=== PATIENT | male | born 1970 | race Caucasian/White ===

== ENCOUNTER 2019-09-29 07:12 | Emergency (ER) | payer OTHER, SELFPAY ==
--- NOTE | ~2019-09-29 | CT_ITS ---
EXAMINATION: CT brain wo con DATE: 09/29/2019 08:53 INDICATION: Headache. TECHNIQUE: Computed tomography (CT) of the head was performed without intravenous contrast. The mA wa s adjusted according to patient size. Iterative reconstruction technique was employed. The dose-lengt h product was 681.00 mGy-cm. COMPARISON: Head CT 01/20/2019 FINDINGS: The lateral and third ventricles are enlarged without change. There is a right occipital sh unt with tip in right lateral ventricle. There is chronic diffuse dural thickening, which is an expec leandra finding after craniotomy. There is no intracranial hemorrhage, acute infarction, or abnormal intr acranial mass lesion. There is mucosal thickening in the paranasal sinuses. The orbits are normal. Th e mastoid air cells are normal. Partially visualized is retained tubing in the right neck. IMPRESSION: 1. Enlargement of the lateral and third ventricles without change. Ventriculoperitoneal shunt in expe cted position without change. Reviewed, dictated and finalized at location A. DESK ADMINISTRATOR IMPRESSION: 1. Enlargement of the lateral and third ventricles without change. Ventriculope ritoneal shunt in expected position without change.
--- NOTE | ~2019-09-29 | XR_ITS ---
EXAMINATION: XR chest 2V DATE: 09/29/2019 08:52 INDICATION: Right chest pain. Weakness. TECHNIQUE: Frontal and lateral views of the chest were obtained. COMPARISON: Chest radiograph 06/27/2019 FINDINGS: The chest demonstrates clear lungs without pneumonia, pleural effusion, or pneumothorax. Th e heart size is normal. There is ventriculoperitoneal shunt tubing in right chest wall. IMPRESSION: 1. No acute cardiopulmonary disease. Reviewed, dictated and finalized at location A. UCT SAFETY ADMINISTRATOR
[2019-09-29 07:40] VITALS: BP 118/67; PULSE 66; RESP 18; TEMP 36.6; O2SAT 96
[2019-09-29 08:23] LABS: Basophils Absolute Auto 0.07 K/mm3 (0.00-0.10); Basophils Percent Auto 0.6 % (0.0-1.0); Eosinophils Absolute Auto 0.31 K/mm3 (0.02-0.50); Eosinophils Percent Auto 2.6 % (1.0-6.0); Hematocrit 45.9 % (40.0-54.0); Hemoglobin 16.8 g/dL (14.0-18.0); Immature Granulocyte Absolute 0.05 K/mm3 (0.00-0.00); Immature Granulocyte Percent A 0.4 % (0.0-0.0); Lymphocytes Absolute Auto 1.72 K/mm3 (1.10-4.50); Lymphocytes Percent Auto 14.6 % (18.0-42.0); Mean Corpuscular HGB Conc 36.6 g/dL (32.0-36.0); Mean Corpuscular Hemoglobin 30.7 pg (27.0-31.0); Mean Corpuscular Volume 83.8 fL (78.0-102.0); Mean Platelet Volume 10.2 fl (8.7-11.0); Monocytes Absolute Auto 1.02 K/mm3 (0.10-0.90); Monocytes Percent Auto 8.6 % (2.0-11.0); Neutrophils Absolute Auto 8.7 K/mm3 (1.7-7.2); Neutrophils Percent Auto 73.2 % (50.0-70.0); Platelet Count Result 201 K/mm3 (150-420); Red Blood Count 5.48 M/mm3 (4.70-6.10); Red Cell Distribution Width 11.6 % (11.6-14.4); White Blood Count 11.8 K/mm3 (4.8-10.8)
[2019-09-29 08:24] LABS: Add Urine Microscopic? YES; Appearance Urine Clear (Clear); Bilirubin Urine Negative (Negative); Blood Urine Negative (Negative); Color Urine Yellow (Yellow); Glucose Urine UA 3+ (Negative); Ketones Urine Negative (Negative); Leukocyte Esterase Ur Negative LEU/UL (Negative); Nitrate Urine Negative (Negative); Protein Urine Negative (Negative); Urobilinogen Urine 0.2 mg/dL (0.2-1.0)
[2019-09-29 08:28] LABS: Bacteria Urine None seen /hpf; RBC Urine 0-2 /hpf (0-2); WBC Urine 0-3 /hpf (0-3)
[2019-09-29] MEDS: MORPHINE SULFATE 4 MG/ML INJ IV PUSH (08:29)
[2019-09-29] MEDS: ONDANSETRON INJ 4 MG/2 ML VIAL IV PUSH (08:29)
--- NOTE | 2019-09-29 08:34 | PC.NURSE ---
pt to xray with Miriam cook wheelchair.
[2019-09-29 08:40] LABS: Alanine Aminotransferase 21 U/L (16-63); Albumin Level 3.8 g/dL (3.4-5.0); Alkaline Phosphatase 184 U/L (46-116); Anion Gap 14.4 mmol/L (7-16); Aspartate Amino Transferase 11 U/L (15-37); Bilirubin,Total 0.9 mg/dL (0.00-1.00); Blood Urea Nitrogen 13 mg/dL (7-18); Carbon Dioxide 26 mmol/L (21-32); Chloride 96 mmol/L (98-108); Estimated CRCL calculation 90 ml/min; Estimated Glomerular Filt Rate > 60; Potassium 4.4 mmol/L (3.5-5.1); Sodium 132 mmol/L (136-145); Total Protein 7.5 g/dL (6.4-8.2)
[2019-09-29 08:41] LABS: Glucose 519 mg/dL (70-99); Influenza Control Valid (Valid); Osmolality Calculated 297 mOsm/kg (285-295)
--- NOTE | 2019-09-29 08:42 | PC.NURSE ---
call from lab, glucose level 519. erp dr yun notified.
--- NOTE | 2019-09-29 08:57 | PC.NURSE ---
pt return from xray. was able to steadily walk to bathroom without assistance. states for the 1st time in 1 week i dont have a headache.
--- NOTE | 2019-09-29 09:31 | ED.HA ---
HPI - Headache General Chief Complaint: Headache Stated Complaint: feeling well, headache Source: patient Limitations: no limitations History of Present Illness HPI Narrative: 48-year-old male with a history of ventricular shunt that was placed when he was 15 years old some has not seen a neurosurgeon the last 10 years and has not had a primary care physician. Presents with headache generalized with nausea no blurry vision no fever or chills no chest pain no shortness of breath no abdominal pain no diarrhea constipation. Patient has tried Tylenol with minimal relief, there is some no confusion no slurred speech no lethargy no ataxia. Patient did not volunteer that he is a diabetic and has been on insulin in the past, and has been verbally abusive since he presented to our ER, and of calling all doctors that he has recently visited [facility] and not knowing what they are doing. Had a workup with a CT scan approximately 2 to 3 weeks ago with a normal CT. MD elicited complaint: headache Onset description: gradually Location: generalized Severity: moderate Quality & Timing: aching and similar to previous headaches Exacerbating factors: none Context: occurred at rest Associated symptoms: nausea Related Data Home Medications Medication Instructions Recorded Confirmed No Home Medications 09/29/19 09/29/19 Allergies Allergy/AdvReac Type Severity Reaction Status Date / Time No Known Allergies Allergy Unverified 04/20/18 20:16 Review of Systems Review of Systems: All systems reviewed & are unremarkable except as noted in HPI and below PMFSH Past Medical History Medical History Diabetes mellitus Hydrocephalus Social History Social History Smoking status: Current every day smoker Course Course Emergency Course: Reassessment headache has improved with currently no nausea or vomiting, reviewed CT scan and laboratory findings including a chest x-ray which were on normal findings, the CT scan was read as no ventricular shunt abnormalities. The patient was told that his blood sugars were 519, the patient said that is normal for him and we going to do about it, and he has been on insulin in the past and he stopped taking his medication because he felt that the the doctors were inadequate did not know how to treat his insulin and diabetes. After consulting with him and advising that he needed a dose of insulin and can go home with p.o. medications totally follows up with his primary care physician he became very combative, verbally abusive and some using profanity. And continue to be rate doctors that the take care of him. Of the patient was advised to take his some dose of insulin and can be discharged with p.o. medication, but he kept reiterating that what we do afterwards. And it was explained to him that he can continue to take p.o. medications to [facility] follows up with a primary care physician. Continued to be verbally abusive using profanity and seeing the doctors some in [place] do not know what they are doing. Patient signing out AMA. Gave patient all the options to bring down his blood sugars he refused advised that he needs to follow with the neurosurgeon. And continue using profanity even while walking out the door and signing out AMA Vital Signs Vital signs: Vital Signs Temperature 36.6 C 09/29/19 07:40 Pulse Rate 66 09/29/19 07:40 Respiratory Rate 18 09/29/19 07:40 Blood Pressure 118/67 09/29/19 07:40 Pulse Oximetry 96 09/29/19 07:40 Temperature 36.6 C 09/29/19 07:40 Pulse Rate 66 09/29/19 07:40 Respiratory Rate 18 09/29/19 07:40 Blood Pressure 118/67 09/29/19 07:40 Pulse Oximetry 96 09/29/19 07:40 MDM - Headache Lab Data Result diagrams: 09/29/19 08:19 09/29/19 08:19 Labs: Lab Results 09/29/19 09/29/19 09/29/19 Range/Uni
--- NOTE | 2019-09-29 09:37 | PC.NURSE ---
pt verbally abusive to RN and doctor. pt not forthcoming with all past medical history. after discussing diabetes and elevated blood sugar with dr yun, pt became irrate and stated i have insulin at home and all you F------doctors are idiots. see refusal of medical treatment form. pt signed ama form. discharge plan not completed due to pt signing out ama. extensive explaination and instructions per dr yun continued
== END 2019-09-29 09:40 | disposition left against medical advice (07) ==
PROVIDERS: Emergency Provider Emergency Medicine
DX: E11.69 Type 2 diabetes mellitus with other specified complication (principal); G91.9 Hydrocephalus, unspecified; R51 Headache
CPT/HCPCS: 36415; 70450; 71046; 80053; 81001; 85025; 87040; 87804; 96374; 96375; 99283; 99284; J2270; J2405

== ENCOUNTER 2020-07-07 15:37 | Emergency (ER) | payer SELFPAY ==
--- NOTE | ~2020-07-07 | XR_ITS ---
EXAMINATION: XR chest 1V portable DATE: 07/07/2020 16:27 INDICATION: Chest tightness. TECHNIQUE: A single frontal view of the chest was obtained. COMPARISON: Chest 2 views 09/29/2019 FINDINGS: The chest demonstrates clear lungs without pneumonia, pleural effusion, or pneumothorax. Th e heart size is normal. Tubing overlies the right chest. There is an old healed fracture of right cla vicle. IMPRESSION: 1. No acute cardiopulmonary disease. Reviewed, dictated and finalized at location A. FACTURING QUALITY ENGINEER
[2020-07-07 16:00] VITALS: BP 126/75; PULSE 63; RESP 13; TEMP 36.6; O2SAT 99
[2020-07-07 16:12] VITALS: PULSE 65
[2020-07-07 16:58] LABS: Basophils Absolute Auto 0.05 K/mm3 (0.00-0.10); Basophils Percent Auto 0.6 % (0.0-1.0); Eosinophils Absolute Auto 0.42 K/mm3 (0.02-0.50); Eosinophils Percent Auto 5.4 % (1.0-6.0); Hematocrit 48.7 % (40.0-54.0); Hemoglobin 17.6 g/dL (14.0-18.0); Immature Granulocyte Absolute 0.05 K/mm3 (0.00-0.00); Immature Granulocyte Percent A 0.6 % (0.0-0.0); Lymphocytes Absolute Auto 2.73 K/mm3 (1.10-4.50); Mean Corpuscular HGB Conc 36.1 g/dL (32.0-36.0); Mean Corpuscular Hemoglobin 30.4 pg (27.0-31.0); Mean Corpuscular Volume 84.1 fL (78.0-102.0); Mean Platelet Volume 10.1 fl (8.7-11.0); Monocytes Absolute Auto 0.62 K/mm3 (0.10-0.90); Neutrophils Absolute Auto 3.9 K/mm3 (1.7-7.2); Neutrophils Percent Auto 50.4 % (50.0-70.0); Platelet Count Result 182 K/mm3 (150-420); Red Blood Count 5.79 M/mm3 (4.70-6.10); Red Cell Distribution Width 11.5 % (11.6-14.4); White Blood Count 7.8 K/mm3 (4.8-10.8)
[2020-07-07] MEDS: KETOROLAC (*BKC) 60 MG/2 ML VIAL IM (17:02)
[2020-07-07 17:16] LABS: Alanine Aminotransferase 22 U/L (16-63); Alkaline Phosphatase 163 U/L (46-116); Anion Gap 8 mmol/L (8-16); Aspartate Amino Transferase 13 U/L (15-37); Bilirubin,Total 1.1 mg/dL (0.00-1.00); Blood Urea Nitrogen 10 mg/dL (7-18); Calcium 9.2 mg/dL (8.5-10.1); Carbon Dioxide 26 mmol/L (21-32); Chloride 100 mmol/L (98-108); Estimated CRCL calculation 109 ml/min; Estimated Glomerular Filt Rate > 60; Glucose 289 mg/dL (70-99); Osmolality Calculated 288 mOsm/kg (285-295); Potassium 3.8 mmol/L (3.5-5.1); Sodium 134 mmol/L (136-145); Total Protein 8.6 g/dL (6.4-8.2)
[2020-07-07 17:24] LABS: Troponin I < 0.02 ng/mL (0.00-0.056)
[2020-07-07 17:26] LABS: Influenza Control Valid (Valid)
--- NOTE | 2020-07-07 17:33 | ED.CHESTPAIN ---
HPI - Chest Pain General Chief Complaint: Chest Pain Stated Complaint: headache/tightness in chest Source: patient Mode of arrival: ambulatory History of Present Illness HPI narrative: this is 41-year-old gentleman with history of normal pressure hydrocephalus with a a shunt, presents with chest congestion and tightness with some productive cough of yellow sputum with some mild shortness of breath, no fever or chills no nausea vomiting no neurological deficits has mild headache with some no weakness arms or legs no blurry vision. Patient has a history of diabetes and currently there is no nausea vomiting no abdominal pain no diarrhea constipation. MD complaint: chest discomfort ( described more as congestion) Onset (ago): day(s) Timing of current episode: constant Onset: during rest and other Risk Factors Coronary artery disease risk factors: diabetes Related Data Allergies Allergy/AdvReac Type Severity Reaction Status Date / Time No Known Allergies Allergy Unverified 04/20/18 20:16 Review of Systems Review of Systems: All systems reviewed & are unremarkable except as noted in HPI and below PMFSH Past Medical History Medical History (Updated 07/07/20 @ 17:37 by All Choi MD) Diabetes mellitus Hydrocephalus Social History Social History Smoking status: Current every day smoker Exam Const: General: no acute distress Orientation/consciousness: patient oriented x3 HENMT: Head: normal to inspection Eyes: Conjunctivae: conjunctivae normal Pupils: Equal, round and reactive pupils present EOM: EOMs intact bilaterally Direct Ophthalmoscopy: no photophobia Neck: Neck: normal visual inspection, no lymphadenopathy and no meningeal signs Chest: Chest palpation & inspection: normal inspection of the chest Resp: Effort & Inspection: normal respiratory effort Auscultation: diminished lung sounds Cardio: Rate: regular rate Rhythm: regular rhythm : Testes: Testes normal Urinary Catheter: Urinary Catheter: patent and draining Back/Spine/Pelvis: Back: no CVA tenderness Skin: General skin exam: normal color Rashes: no rashes Course Course Emergency Course: Patient received IM Toradol and headache has improved continues to have a and chest congestion with a mild productive cough, reviewed chest x-ray ending area Vital Signs Vital signs: Vital Signs Temperature 36.6 C 07/07/20 16:00 Pulse Rate 63 07/07/20 16:00 Respiratory Rate 13 07/07/20 16:00 Blood Pressure 126/75 07/07/20 16:00 Pulse Oximetry 99 07/07/20 16:00 Temperature 36.6 C 07/07/20 16:00 Pulse Rate 65 07/07/20 16:12 Respiratory Rate 13 07/07/20 16:00 Blood Pressure 126/75 07/07/20 16:00 Pulse Oximetry 99 07/07/20 16:00 MDM - Chest Pain Lab Data Result diagrams: 07/07/20 16:50 07/07/20 16:50 Labs: Lab Results 07/07/20 07/07/20 07/07/20 Range/Units 16:10 16:50 16:50 WBC 7.8 (4.8-10.8) K/mm3 RBC 5.79 (4.70-6.10) M/mm3 Hgb 17.6 (14.0-18.0) g/dL Hct 48.7 (40.0-54.0) % MCV 84.1 (78.0-102.0) fL MCH 30.4 (27.0-31.0) pg MCHC 36.1 H (32.0-36.0) g/dL RDW 11.5 L (11.6-14.4) % Plt Count 182 (150-420) K/mm3 MPV 10.1 (8.7-11.0) fl Immature Gran % (Auto) 0.6 H (0.0-0.0) % Neut % (Auto) 50.4 (50.0-70.0) % Lymph % (Auto) 35.0 (18.0-42.0) % [place] % (Auto) 8.0 (2.0-11.0) % Eos % (Auto) 5.4 (1.0-6.0) % Baso % (Auto) 0.6 (0.0-1.0) % Lymph # (Auto) 2.73 (1.10-4.50) K/mm3 [place] # (Auto) 0.62 (0.10-0.90) K/mm3 Eos # (Auto) 0.42 (0.02-0.50) K/mm3 Baso # (Auto) 0.05 (0.00-0.10) K/mm3 Abs Immat Gran (auto) 0.05 H (0.00-0.00) K/mm3 Absolute Neuts (auto) 3.9 (1.7-7.2) K/mm3 Absolute Nucleated RBC 0.00 (0.00-0.00) K/mm3 Nucleated RBC % 0.0 (0-0.0) % Sodium 134 L (136-145) mmol/L Potassium 3.8 (3.5-5.1)
[2020-07-07] MEDS: AZITHROMYCIN 250 MG TABLET 500 MG PO (18:00)
[2020-07-07 18:07] VITALS: BP 115/73; PULSE 53; RESP 15; O2SAT 98
[2020-07-09 00:53] LABS: SARS-CoV-2 RNA PCR Positive
== END 2020-07-07 18:13 | disposition home or self-care (01) ==
PROVIDERS: Emergency Provider Emergency Medicine
DX: U07.1 COVID-19 (principal); J06.9 Acute upper respiratory infection, unspecified; R05 Cough; R09.89 Other specified symptoms and signs involving the circulatory and respiratory systems; F17.200 Nicotine dependence, unspecified, uncomplicated
CPT/HCPCS: 36415; 71045; 80053; 84484; 85025; 87040; 87635; 87804; 96372; 99283; 99284; A9270; C9803; J1885; U0003

== ENCOUNTER 2021-01-07 14:26 | Emergency (ER) | payer SELFPAY ==
--- NOTE | ~2021-01-07 | CT_ITS ---
EXAMINATION: CT brain wo con EXAM DATE: 01/07/2021 15:14 INDICATION: History of hydrocephalus, shunt placement confusion, general [place]/weakness x 3 weeks, abn g ait, dizzy . TECHNIQUE: Spiral CT of the head was performed without contrast. Axial, coronal and sagittal images were reviewed. The dose-length product (DLP) for this examination was 681.00 mGy-cm. The exposure w as tailored according to patient size, and iterative reconstruction (ASIR) was used as additional dos e reduction technique. Comparison is made to prior examination from 09/29/2019, 01/20/2019. FINDINGS: There is a right-sided ventricular shunt entering through the parietal region, tip in the b nisha of the right lateral ventricle. The lateral and 3rd ventricles are dilated out of proportion comp ared to the sulci, however appearance is unchanged compared to 2019. There is no acute intraparenchymal hemorrhage. No evidence of intraparenchymal brain mass lesion. N o evidence of acute infarction. There is no mass effect or midline shift. There are no extra-axial collections. There are no acute calvarial fractures. The orbits are unremarkable. Soft tissue is un remarkable. The visualized sinuses and mastoid air cells are well aerated. IMPRESSION: 1. Mildly dilated ventricles unchanged. 2. No acute findings. Reviewed, dictated and finalized at location A.
[2021-01-07 14:29] VITALS: BP 125/82; PULSE 63; RESP 20; TEMP 36.2; O2SAT 95
--- NOTE | 2021-01-07 14:31 | ED.WEAKNESS ---
HPI - Weakness General Chief complaint: Headache Stated complaint: weak disoriented Time Seen by Provider: 01/07/21 14:29 Source: patient and RN notes reviewed Mode of arrival: ambulatory Limitations: no limitations History of Present Illness HPI Narrative: patient has a history of a ventricular shunt from hydrocephalus since he was 15 years old. He has been having headaches off and on for 3 weeks. He said he vomited twice yesterday. He is just feeling more dizzy and disoriented. Patient is supposed to be taking medications for high BP and diabetes but has not taking any because he lost his insurance. Complaint: generalized weakness and lack of energy Onset (ago): week(s) (3) Duration: intermittent Location: generalized Migration: none Severity: moderate Relieving factors: none Exacerbating factors: none Associated symptoms: headaches ( intermittent) and nausea/vomiting ( twice yesterday) Related Data Allergies Allergy/AdvReac Type Severity Reaction Status Date / Time No Known Allergies Allergy Unverified 04/20/18 20:16 Review of Systems Review of Systems: All systems reviewed & are unremarkable except as noted in HPI and below Constitutional: Constitutional: Denies chills, Denies fever(s) and Reports weakness Eyes: Eyes: Denies photophobia Cardiovascular: Cardiovascular: Denies chest pain Respiratory: Respiratory: Denies cough and Denies dyspnea Gastrointestinal: Gastrointestinal: Denies constipation and Denies diarrhea Genitourinary: Genitourinary: Denies dysuria and Denies urinary frequency Neurologic: Reports confusion and Reports dizziness PMFSH Past Medical History Medical History (Updated 01/07/21 @ 16:00 by Gallo Johnson MD) Anxiety and depression Diabetes mellitus Hydrocephalus Surgical History Surgical History (Updated 01/07/21 @ 14:40 by Gallo Johnson MD) H/O brain surgery H/O knee surgery Social History Social History (Updated 01/07/21 @ 14:56 by Gallo Johnson MD) Smoking packs per day: 1.5 Smoking cigarettes per day: 30.0 Smoking status: Current every day smoker Tobacco type: cigarettes Alcohol intake: current Drinks per week: 12 Substance use: never Exam Const: General: healthy appearing and no acute distress Nutritional Appearance: well nourished Orientation/consciousness: patient oriented x3 HENMT: Head: normal to inspection Ears: external ears normal Mouth: Yes moist mucous membranes Eyes: Conjunctivae: conjunctivae normal Pupils: Equal, round and reactive pupils present EOM: EOMs intact bilaterally Neck: Neck: normal visual inspection Resp: Effort & Inspection: normal respiratory effort Auscultation: clear to auscultation bilaterally Cardio: Rate: regular rate Rhythm: regular rhythm GI: GI Palp: Yes Soft to palpation and No Tenderness to palpation present (GI) Auscultation: normal bowel sounds Back/Spine/Pelvis: Cervical Spine: cervical ROM normal Thoracic/Lumbar Spine: thoraco-lumbar ROM normal Skin: General skin exam: normal color Rashes: no rashes Neuro: General: patient oriented x3, moves all extremities, no meningeal signs and no focal motor deficits Speech: normal speech Extrem: General: normal to inspection and no clubbing, cyanosis or edema Psych: Appearance: grossly normal Mental Status: mental status grossly normal Attitude: cooperative Thought content: Yes Normal thought content present Course Course Emergency Course: I reviewed the CT scan and labs with the patient. His CT showed no change since 2019. Reassured patient there is no evidence of shunt malfunction. Reasons for his generalized weakness as due to his uncontrolled diabetes, alcohol use and tobacco use. Vital Signs Vital signs: Vital Signs Temperature 36.2 C L 01/07/21 14:29 Pulse Rate 63 01/07/21 14:29 Respiratory Rate 20 01/07/21 14:29 Blood Pressure 125/82 01/07/21 14:29 Pulse Oximetry 95 01/07/21 14:29 Temperature 3
[2021-01-07 14:42] LABS: Glucose Point of Care 421 (65-105)
[2021-01-07 14:51] LABS: Basophils Absolute Auto 0.09 K/mm3 (0.00-0.10); Basophils Percent Auto 1.2 % (0.0-1.0); Eosinophils Percent Auto 6.4 % (1.0-6.0); Hematocrit 46.6 % (40.0-54.0); Immature Granulocyte Absolute 0.04 K/mm3 (0.00-0.00); Immature Granulocyte Percent A 0.5 % (0.0-0.0); Lymphocytes Absolute Auto 2.77 K/mm3 (1.10-4.50); Lymphocytes Percent Auto 35.6 % (18.0-42.0); Mean Corpuscular HGB Conc 36.5 g/dL (32.0-36.0); Mean Corpuscular Hemoglobin 30.7 pg (27.0-31.0); Mean Corpuscular Volume 84.3 fL (78.0-102.0); Mean Platelet Volume 10.2 fl (8.7-11.0); Monocytes Absolute Auto 0.64 K/mm3 (0.10-0.90); Monocytes Percent Auto 8.2 % (2.0-11.0); Neutrophils Absolute Auto 3.7 K/mm3 (1.7-7.2); Neutrophils Percent Auto 48.1 % (50.0-70.0); Platelet Count Result 219 K/mm3 (150-420); Red Blood Count 5.53 M/mm3 (4.70-6.10); Red Cell Distribution Width 11.5 % (11.6-14.4); White Blood Count 7.8 K/mm3 (4.8-10.8)
[2021-01-07 14:59] LABS: Hemoglobin A1C 8.9 % (<5.7)
[2021-01-07] MEDS: INSULIN HUMAN REGULAR (*BKC) 100 UNITS/ML 20 UNITS SUB-Q (15:02)
--- NOTE | 2021-01-07 15:04 | PC.NURSE ---
1504 pt to xray with [address] x[address] staff for head ct. pt taken per wheelchair.
--- NOTE | 2021-01-07 15:12 | PC.NURSE ---
1510 pt return to room per wheelchair. declines need to urinate.
[2021-01-07 15:14] LABS: Alanine Aminotransferase 28 U/L (16-63); Albumin Level 3.8 g/dL (3.4-5.0); Alkaline Phosphatase 179 U/L (46-116); Anion Gap 7 mmol/L (8-16); Aspartate Amino Transferase 15 U/L (15-37); Blood Urea Nitrogen 10 mg/dL (7-18); Calcium 8.9 mg/dL (8.5-10.1); Carbon Dioxide 29 mmol/L (21-32); Chloride 98 mmol/L (98-108); Estimated CRCL calculation 93 ml/min; Estimated Glomerular Filt Rate > 60; Osmolality Calculated 296 mOsm/kg (285-295); Potassium 4.1 mmol/L (3.5-5.1); Sodium 134 mmol/L (136-145); Thyroid Stimulating Hormone 1.61 uIU/mL (0.36-3.74); Total Protein 7.5 g/dL (6.4-8.2)
[2021-01-07 15:15] VITALS: BP 122/80; PULSE 61; RESP 20; O2SAT 98
[2021-01-07 15:17] LABS: Ethanol < 3 mg/dL (0-6)
[2021-01-07 15:18] LABS: Glucose 439 mg/dL (70-99)
[2021-01-07 15:31] LABS: Glucose Point of Care 311 (65-105)
[2021-01-07 15:44] LABS: Add Urine Microscopic? YES; Appearance Urine Clear (Clear); Bilirubin Urine Negative (Negative); Blood Urine Negative (Negative); Color Urine Yellow (Yellow); Glucose Urine UA 3+ (Negative); Ketones Urine Negative (Negative); Leukocyte Esterase Ur Negative LEU/UL (Negative); Nitrate Urine Negative (Negative); Protein Urine Negative (Negative); Urobilinogen Urine 0.2 mg/dL (0.2-1.0)
[2021-01-07 15:50] LABS: Amphetamine Screen Urine Negative (Negative); Barbiturate Screen Urine Negative (Negative); Benzodiazepines Screen Urine Negative (Negative); Cannabinoid Screen Urine Negative (Negative); Cocaine Screen Urine Negative (Negative); Methadone Screen Urine Negative (Negative); Opiate Screen Urine Negative (Negative); Phencyclidine Screen Urine Negative (Negative); RBC Urine 0-2 /hpf (0-2); WBC Urine 0-3 /hpf (0-3)
[2021-01-07 15:51] LABS: Bacteria Urine Trace /hpf
[2021-01-07 15:55] VITALS: BP 141/79; PULSE 62; RESP 20; TEMP 36.9; O2SAT 97
== END 2021-01-07 16:04 | disposition home or self-care (01) ==
PROVIDERS: Emergency Provider Emergency Medicine; PCP Family Medicine
DX: E11.65 Type 2 diabetes mellitus with hyperglycemia (principal)
CPT/HCPCS: 36415; 70450; 80053; 80307; 81001; 82948; 83036; 84443; 85025; 99283; 99284; J1815

== ENCOUNTER 2021-02-11 05:06 | Emergency (ER) | payer SELFPAY ==
--- NOTE | ~2021-02-11 | CT_ITS ---
EXAMINATION: CT brain wo con DATE: 02/11/2021 06:56 INDICATION: Hydrocephalus. TECHNIQUE: Computed tomography (CT) of the head was performed without intravenous contrast. The dose- length product was 681.00 mGy-cm. Automated exposure control and iterative reconstruction technique were employed. COMPARISON: CT dated 01/07/2010 FINDINGS: There is a right-sided ventricular shunt, tip in the right lateral ventricle. Mild ventricu lomegaly unchanged. No acute intracranial hemorrhage, infarction, mass or mass effect. There is intra cranial atherosclerosis. There is mild mucosal thickening of the ethmoid sinuses. Postsurgical change s at the junction of the right maxillary sinus and nasal bone. Mastoids are pneumatized. No air-fluid levels. There is chronic diffuse dural thickening dural calcifications along the left hemisphere. IMPRESSION: 1. Stable enlargement of the lateral and third ventricles with ventriculoperitoneal shunt in expected position. Reviewed, dictated and finalized at location A. IMPRESSION: 1. Stable enlargement of the lateral and third ventricles with ventriculoperito leeann shunt in expected position.
--- NOTE | ~2021-02-11 | XR_ITS ---
EXAMINATION: XR chest 2V 02/11/2021 05:52 INDICATION: Cough with shortness of breath PROCEDURE: 2 view chest COMPARISON: 07/07/2020 FINDINGS: The lungs are clear. The cardiomediastinal silhouette is within normal limits. There are no pleural effusions. There is no pneumothorax suspected. There is a shunt overlying the right ches t. There is old healed right clavicular fracture. IMPRESSION: 1: NO ACUTE CARDIOPULMONARY DISEASE. Reviewed, dictated and finalized at location A.
[2021-02-11 05:06] VITALS: BP 133/88; PULSE 64; RESP 20; TEMP 36.5; O2SAT 100
--- NOTE | 2021-02-11 05:16 | ED.SOB ---
HPI - SOB/Dyspnea General Chief Complaint: Upper Respiratory Infection Stated Complaint: SHORTNESS OF BREATHE Time Seen by Provider: 02/11/21 05:10 Source: patient Mode of arrival: ambulatory Limitations: no limitations History of Present Illness HPI Narrative: Patient comes in with cough, recurent, ongoing, dry, for the last two weeks, associated with chronic headache. He is concerned he has bronchitis. He is concerned his shunt in his head is not working. He denies fever and chills. Nothing has made the cough any better. MD elicited complaint: shortness of breath (mild chronic shortness of breath ) and cough Pertinent past history: diabetes and other (ventricular shunt) Context: recent illness Timing: constant Severity: severe Exacerbating factors: exertion Relieving factors: nothing Known history of: diabetes Associated symptoms: denies other symptoms and chest congestion Related Data Home oxygen amount: none Allergies Allergy/AdvReac Type Severity Reaction Status Date / Time No Known Allergies Allergy Unverified 04/20/18 20:16 Review of Systems Constitutional: Constitutional: Denies chills, Reports fatigue and Denies fever(s) (chronic headache) Eyes: Eyes: Reports no additional eye complaints ENT: Reports system reviewed and no additional complaints, except as documented Cardiovascular: Cardiovascular: Reports no additional cardiovascular complaints Respiratory: Respiratory: Reports cough and Reports dyspnea (mild chronic shortness of breath) Gastrointestinal: Gastrointestinal: Reports no additional gastrointestinal complaints Genitourinary: Genitourinary: Reports no additional male genitourinary complaints Musculoskeletal: Musculoskeletal: Reports no additional musculoskeletal complaints Integumentary/Breasts: Skin/Breast: Reports system reviewed and no additional complaints, except as docu Neurologic: Comments: chronic headache Psychiatric: Psychiatric: Reports no additional psychiatric complaints Endocrine: Endocrine: Reports no additional endocrine complaints Hematologic/Lymphatic: Hematologic/Lymphatic: Reports no additional hematologic/lymphatic complaints Allergic/Immunologic: Allergic/Immunologic: Reports no additional allergic/immunologic complaints [facility] Past Medical History Medical History Anxiety and depression Diabetes mellitus Hydrocephalus Surgical History Surgical History H/O brain surgery H/O knee surgery Family History Family History (Updated 02/11/21 @ 05:29 by Gallo Logan MD) Other Family history non-contributory Social History Social History Smoking packs per day: 1.5 Smoking cigarettes per day: 30.0 Smoking status: Current every day smoker Tobacco type: cigarettes Alcohol intake: current Drinks per week: 12 Substance use: never Exam Const: General: no acute distress and alert Orientation/consciousness: patient oriented x3 HENMT: Head: normal to inspection Ears: external ears normal and TM's normal bilaterally General nose exam: Normal external nose present Mouth: Yes Normal oral and palatal mucosa present Throat: posterior oropharynx normal Eyes: Conjunctivae: conjunctivae normal Neck: Neck: normal visual inspection Chest: Chest palpation & inspection: normal inspection of the chest Resp: Effort & Inspection: normal respiratory effort Auscultation: clear to auscultation bilaterally Cardio: Rate: regular rate Rhythm: regular rhythm GI: GI Palp: Yes Soft to palpation (nontender) Skin: General skin exam: normal color Neuro: General: patient oriented x3 and moves all extremities Extrem: General: normal to inspection Psych: Mental Status: mental status grossly normal Thought content: Yes Normal thought content present Course Course Emergency Course: CXR was reviewed. he
[2021-02-11] MEDS: BENZONATATE 100 MG CAPSULE 200 MG PO (05:33)
--- NOTE | 2021-02-11 07:02 | PC.NURSE ---
REPORT TO jason VERDE
[2021-02-11 07:23] VITALS: BP 123/73; PULSE 56; RESP 20; TEMP 37.1; O2SAT 99
== END 2021-02-11 07:28 | disposition home or self-care (01) ==
PROVIDERS: Emergency Provider Emergency Medicine; PCP Family Medicine
DX: J40 Bronchitis, not specified as acute or chronic (principal)
CPT/HCPCS: 70450; 71046; 99283; 99284; A9270

== ENCOUNTER 2021-07-08 14:06 | Emergency (ER) | payer SELFPAY ==
--- NOTE | ~2021-07-08 | XR_ITS ---
EXAMINATION: XR chest 2V 07/08/2021 14:35 INDICATION: Chest pain. History of stroke. PROCEDURE: 2 view chest COMPARISON: Comparison to multiple prior studies sequentially, with oldest reviewed study dated 06/01. FINDINGS: The lungs are clear. There is a catheter overlying the right chest. The cardiomediastinal s ilhouette is within normal limits. There are no pleural effusions. There is no pneumothorax suspect ed. IMPRESSION: 1: NO ACUTE CARDIOPULMONARY DISEASE. Reviewed, dictated and finalized at location A. 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
[2021-07-08 14:15] VITALS: BP 112/70; PULSE 86; RESP 16; TEMP 36.7; O2SAT 98
--- NOTE | 2021-07-08 14:19 | ECG_ITS ---
Measurements Intervals [place] Rate: 80 P: 63 MN: 143 QRS: 39 QRSD: 82 T: 61 QT: 357 QTc: 413 Interpretive Statements SINUS RHYTHM POSSIBLE LEFT ATRIAL ENLARGEMENT INCOMPLETE RIGHT BUNDLE BRANCH BLOCK BORDERLINE T WAVE ABNORMALITY- ANTERIOR LEADS BASELINE ARTIFACT- I, III, AVL, AVF, V3 BORDERLINE ECG Electronically Signed On 07-08-2021 16:21:17 PIANO ACCOMPANIST by Sabino Alvarez D.O.
[2021-07-08 14:37] LABS: Basophils Absolute Auto 0.1 K/mm3 (0.0-0.1); Basophils Percent Auto 1.1 % (0.2-1.2); Eosinophils Absolute Auto 0.3 K/mm3 (0-0.3); Eosinophils Percent Auto 3.7 % (0-4.4); Hematocrit 43.9 % (42.0-52.0); Hemoglobin 16.1 g/dL (14.0-18.0); Immature Granulocyte Absolute 0.02 K/mm3 (0.00-0.031); Immature Granulocyte Percent A 0.3 % (0-0.5); Lymphocytes Absolute Auto 2.53 K/mm3 (0.9-3.2); Lymphocytes Percent Auto 32.3 % (18.3-44.2); Mean Corpuscular HGB Conc 36.7 g/dl (32-36); Mean Corpuscular Hemoglobin 30.5 pg (26-34); Mean Corpuscular Volume 83.1 fl (80-100); Mean Platelet Volume 9.9 fl (7.4-10.4); Monocytes Absolute Auto 0.6 K/mm3 (0.1-0.6); Monocytes Percent Auto 7.3 % (2.6-8.5); Neutrophils Absolute Auto 4.3 K/mm3 (1.3-6.7); Neutrophils Percent Auto 55.3 % (45.5-73.1); Platelet Count Result 242 k/mm3 (150-375); Red Blood Count 5.28 M/mm3 (4.6-6.20); Red Cell Distribution Width 11.6 % (11.5-14.5); White Blood Count 7.8 K/mm3 (4.5-10.0)
[2021-07-08 14:52] LABS: Partial Thromboplastin Time 26.6 SECONDS (22.3-36.8); Prothrombin Time 13.3 Seconds (11.1-14.7)
[2021-07-08 14:56] LABS: Anion Gap 12 mmol/L (8-16); Blood Urea Nitrogen 10 mg/dL (9-20); Calcium 9.2 mg/dL (8.4-10.2); Carbon Dioxide 25 mmol/L (22-30); Chloride 99 mmol/L (98-107); Estimated CRCL calculation 116 ml/min; Estimated Glomerular Filt Rate > 60; Glucose 215 mg/dL (65-110); Potassium 3.7 mmol/L (3.4-5.0); Sodium 136 mmol/L (137-145)
[2021-07-08 15:08] LABS: Troponin I < 0.012 ng/mL (0.000-0.034)
[2021-07-08 15:32] VITALS: BP 121/75; PULSE 68; RESP 19; O2SAT 99
[2021-07-08 15:35] VITALS: PULSE 68
--- NOTE | 2021-07-08 15:40 | ED.CHESTPAIN ---
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 Patient denied any recent heavy bending or lifting. States that he had some soreness into his left shoulder and tingling in his left arm without weakness. Patient denies any associated diaphoresis, nausea, vomiting, shortness of breath. He denies current chest pain. States pain may have lasted around an hour or 2 before resolving. Patient denies any ripping or tearing sensation into the back or flanks. No recurrent pain today. Patient states that his workplace insisted he take an ambulance to be evaluated. Patient does still smoke. He states he has a history of heart attack in the past but does not recall if he has any stents placed. 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 States that he has been without insurance since 2017, he has not had any of his blood pressure, cholesterol, or diabetes medications. Patient states he has a history of Covid a year ago for which she did not require hospitalization. He denies recent fever, chills, cough or shortness of breath. No rhinorrhea or congestion. No recent car or air travel. No leg swelling or calf pain. No history of coagulopathy. At the time of my assessment, patient is stating that he wants to go home, states that he wants to leave the hospital and does not wish to pursue any further medical. Apparently, patient did receive full dose aspirin in route by EMS. Review of Systems Review of Systems: CONSTITUTIONAL: Denies fever, chills, or sweats. EYES: Denies visual changes, redness, or discharge. ENT: Denies rhinorrhea, congestion, sore throat, or otalgia. CARDIOVASCULAR: Denies current chest pain, palpitations, or edema. RESPIRATORY: Denies cough or dyspnea. GASTROINTESTINAL: Denies abdominal pain, nausea, vomiting, or diarrhea. GENITOURINARY: Denies dysuria or hematuria. SKIN: Denies rash or itching. MUSCULOSKELETAL: Denies back pain, joint pain, or myalgia. NEUROLOGIC: Denies headache, numbness, or weakness. [facility] Surgical History Surgical History (Updated 07/08/21 @ 15:56 by Mayra Teixeira MD) H/O brain surgery S/P ANIMAL NUTRITION TEACHER shunt Social History Social History (Updated 07/08/21 @ 15:57 by Mayra Teixeira MD) Smoking status: Current every day smoker Tobacco type: cigarettes Substance use: current Substance use type: marijuana Gender identity (if verbalized by the patient): Male Exam Narrative: GENERAL: Awake, alert, conversant HEAD: Normocephalic, atraumatic. EYES: PERRLA and EOMI. ENT: Nares clear, no rhinorrhea or epistaxis. Mucous membranes moist. NECK: Supple. CHEST: No respiratory distress, breathing even and non labored, no chest wall tenderness HEART: Regular rate, sinus rhythm ABDOMEN:Non distended, non tender EXTREMITIES: Normal range of motion. No edema. SKIN: Warm, dry, no rash. NEURO:No focal deficits. Alert and oriented x3 Course Vital Signs Vital signs: Vital Signs Temperature 36.7 C 07/08/21 14:15 Pulse Rate 86 07/08/21 14:15 Respiratory Rate 16 07/08/21 14:15 Blood Pressure 112/70 07/08/21 14:15 Pulse Oximetry 98 07/08/21 14:15 Temperature 36.7 C 07/08/21 14:15 Pulse Rate 66 07/08/21 15:48 Respiratory Rate 19 07/08/21 15:48 Blood Pressure 121/75 07/08/21 15:32 Pulse Oximetry 99 07/08/21 15:48 MDM - Chest Pain MDM Narrative Medical decision making narrative: Patient presenting for evaluation of chest pain that is currentl
[2021-07-08 15:48] VITALS: PULSE 66; RESP 19; O2SAT 99
--- NOTE | 2021-07-08 15:50 | PC.NURSE ---
Patient in room stating he would like to go home and he doesn't like hospitals. EDP Lluvia in room educating patient on plan of care. Patient states he would rather go home and does not want to be here. Patient's IV was discontinued, which was started by EMS, and patient agreed to sign to AMA paperwork.
== END 2021-07-08 16:00 | disposition left against medical advice (07) ==
LOC: ANHED 15:59
PROVIDERS: Emergency Provider Emergency Medicine; PCP Family Medicine
DX: R07.89 Other chest pain (principal); I10 Essential (primary) hypertension; E78.5 Hyperlipidemia, unspecified; E11.9 Type 2 diabetes mellitus without complications; G91.9 Hydrocephalus, unspecified; Z98.2 Presence of cerebrospinal fluid drainage device; I25.2 Old myocardial infarction; Z86.16 Personal history of COVID-19; F17.210 Nicotine dependence, cigarettes, uncomplicated; I45.10 Unspecified right bundle-branch block; R94.31 Abnormal electrocardiogram [ECG] [EKG]
CPT/HCPCS: 36415; 71046; 80048; 84484; 85025; 85610; 85730; 93005; 99284

== ENCOUNTER 2021-09-30 07:43 | Outpatient (CLI) | payer OTHER, SELFPAY ==
--- NOTE | 2021-09-30 07:48 | EST_ITS ---
Patient Info Name: Rigoberto Crespo Age: 50 years : 1970 Gender: Male Ht: 75 in Wt: 203 lbs BSA: 2.21 m2 HR: 60 bpm BP: 117 / 76 mmHg Heart Rhythm: Sinus Rhythm Technical Quality: Excellent Exam Date: 09/30/2021 8:55 AM Exam Location: [facility] Patient Status: Outpatient Admit Date: 09/30/2021 Staff Ordering Physician: Sabino Alvarez DO Attending Provider: Sabino Alvarez DO Exercise Technologist: Sara Rosa CRT Exercise Physician: Archana Amos CEP Exam Type: CA stress johan w NM Study Info Indications ChestPain - A nuclear stress test was performed. History/Risk Factors Hypertension: Yes Diabetes Mellitus: Yes Tobacco Use: Current - Frequency Unknown History/Risk Factors HTN. Diabetes. Smoker. Chest Pain. Summary 1. 1. Negative lexiscan stress test for ischemic ST changes by ECG criteria. 2. 2. Stable hemodynamics throughout the test. 3. 3. Nuclear scan to follow and will be reported separately. Please correlate with it. Protocol: LEXISCAN Stress ECG Details Stage: REST Duration (min): 3 min : 51 sec HR (bpm): 59 SBP (mmHg): 117 DBP (mmHg): 76 Stage: REST Duration (min): 10 min : 49 sec HR (bpm): 61 SBP (mmHg): 117 DBP (mmHg): 76 Stage: STAGE 1 Duration (min): 0 min : 4 sec HR (bpm): 64 SBP (mmHg): 117 DBP (mmHg): 76 Stage: RECOVERY Duration (min): 0 min : 55 sec HR (bpm): 86 SBP (mmHg): 117 DBP (mmHg): 76 Stage: RECOVERY Duration (min): 1 min : 55 sec HR (bpm): 82 SBP (mmHg): 121 DBP (mmHg): 67 Stage: RECOVERY Duration (min): 2 min : 55 sec HR (bpm): 77 SBP (mmHg): 118 DBP (mmHg): 66 Stage: RECOVERY Duration (min): 3 min : 55 sec HR (bpm): 72 SBP (mmHg): 116 DBP (mmHg): 65 Stage: RECOVERY Duration (min): 4 min : 55 sec HR (bpm): 71 SBP (mmHg): 109 DBP (mmHg): 66 Stage: RECOVERY Duration (min): 5 min : 55 sec HR (bpm): 77 SBP (mmHg): 108 DBP (mmHg): 65 Stage: RECOVERY Duration (min): 6 min : 1 sec HR (bpm): 76 SBP (mmHg): 108 DBP (mmHg): 65 Rest HR: 61 bpm Peak HR: 86 bpm Rest Sys BP: 117 mmHg Peak Sys BP: 121 mmHg Max Pred HR: 171 bpm % Max Pred HR: 50 % Target HR: 145 bpm Max RPP: 10,406 bpm*mmHg Termination Reason: Completed Protocol Cardiac Symptoms: Dyspnea Total Time: 0 min : 4 sec Rest Hardin BP: 76 mmHg Peak Hardin BP: 67 mmHg Total Dose: 0.4 mg Resting ECG Normal sinus rhythm - normal ECG. Stress ECG No ST changes. Arrhythmias No arrhythmias were observed during the examination. Report Signatures
--- NOTE | 2021-09-30 12:10 | WPDCARIOSTRE ---
Nuclear Stress Test INDICATIONS Indications: Chest pain PROCEDURE Procedure Performed: Myocardial Perf Spect-Multi Procedure: Patient underwent a lexiscan stress test and immediately was injected with 33.2 mCi of cardiolyte. Multiple tomographic images were obtained. These are of good quality. There is evidence of a moderate size, severe apical perfusion defect during stress imaging. A separate resting images were obtained after patient was injected with 10.4 mCi of cardiolyte. Multiple tomographic images were obtained. These are of good quality. There is evidence of a moderate size, severe apical perfusion defect during rest imaging. CONCLUSION Conclusion: 1. Myocardial perfusion imaging demonstrating a fixed moderate size apical perfusion defect suggesting attenuation artifact. 2. No evidence of reversible ischemia. 3. Left ventriculogram demonstrates normal measured ejection fraction of 62% with no wall motion abnormalities. 4. TID score is normal at 0.99.
== END 2021-09-30 07:44 | disposition home or self-care (01) ==
LOC: CHSIMG 07:45
PROVIDERS: Visit Provider Internal Medicine Cardiovascular Disease
DX: R07.9 Chest pain, unspecified (principal)
CPT/HCPCS: 78452; 93017; A9502; J2785

== ENCOUNTER 2021-10-08 13:07 | Outpatient (CLI) | payer OTHER, SELFPAY ==
--- NOTE | 2021-10-08 13:13 | ECHO_ITS ---
Patient Info Name: Rigoberto Crespo Age: 50 years : 1970 Gender: Male Ht: 75 in Wt: 200 lbs BSA: 2.20 m2 HR: 59 bpm BP: 118 / 79 mmHg Technical Quality: Good Exam Date: 10/08/2021 2:06 PM Exam Location: [facility] [place] Patient Status: Outpatient Admit Date: 10/08/2021 Staff Ordering Physician: Sabino Alvarez DO Manager French: Nickie Oglesby Attending Provider: Sabino Alvarez DO Referring Physician: Antonio CHAMBERS; Exam Type: CA echo doppler color flow Study Info Indications R06.00 - Dyspnea, unspecified Complete two-dimensional, color flow and Doppler transthoracic echocardiogram is performed. Strain analysis performed. History/Risk Factors Hypertension: Yes Diabetes Mellitus: Yes Tobacco Use: Current - Frequency Unknown Summary 1. Complete two-dimensional, color flow and Doppler transthoracic echocardiogram is performed. 2. Left ventricular chamber dimension is normal. 3. Left ventricular systolic function is normal, estimated at 60-65%. 4. There is mildly increased left ventricular wall thickness. 5. The left ventricular diastolic function is grade I diastolic dysfunction. 6. E/e' 5 is not elevated. 7. Global longitudinal strain is abnormal at -15.5%. Recommendations * Continue medical therapy for diabetes. * Smoking cessation counseling is recommended for this patient. Left Ventricle E/e' 5 is not elevated. Global longitudinal strain is abnormal at -15.5%. Left ventricular chamber dimension is normal. Left ventricular systolic function is normal, estimated at 60-65%. There is mildly increased left ventricular wall thickness. The left ventricular diastolic function is grade I diastolic dysfunction. Right Ventricle Modertor band is normal variant. Right ventricular systolic function is normal and with normal TAPSE 1.9 cm. Right ventricular chamber dimension is normal. Left Atria Left atrial chamber dimension is normal. Right Atria Right atrial chamber dimension is normal. Aortic Valve The aortic valve is trileaflet. There is no aortic valve stenosis. There is no aortic valve regurgitation. Pulmonic Valve There is no pulmonic regurgitation. Mitral Valve There is no mitral valve stenosis. There is no mitral valve regurgitation. Tricuspid Valve There is no tricuspid valve regurgitation. Pericardium/Pleural There is no pericardial effusion. Inferior Vena Cava Normal inferior vena cava with >50% collapse upon inspiration consistent with normal right atrial pressure, 5 mmHg. Aorta The aortic root size at the sinus of Valsalva is normal. Left Ventricular Outflow Tract Name Value Normal LVOT 2D LVOT Diameter 2.1 cm LVOT Doppler LVOT Peak Velocity 84 cm/s LVOT Peak Gradient 3 mmHg LVOT Mean Gradient 2 mmHg LVOT VTI 18 cm LVOT VTI/AV VTI Ratio 0.9 LVOT Stroke Volume 62 ml Mitral Valve Name
== END 2021-10-08 13:08 | disposition home or self-care (01) ==
PROVIDERS: Visit Provider Internal Medicine Cardiovascular Disease
DX: R06.00 Dyspnea, unspecified (principal)
CPT/HCPCS: 93306

== ENCOUNTER 2022-02-20 08:22 | Emergency (ER) | payer OTHER, SELFPAY ==
[2022-02-20 08:30] VITALS: BP 138/82; PULSE 65; RESP 18; TEMP 36.3; O2SAT 100
== END 2022-02-20 08:55 | disposition left against medical advice (07) ==
PROVIDERS: Emergency Provider Emergency Medicine
DX: Z53.21 Procedure and treatment not carried out due to patient leaving prior to being seen by health care provider (principal)
CPT/HCPCS: 99199

== ENCOUNTER 2022-03-15 12:23 | Emergency (ER) | payer OTHER, SELFPAY ==
--- NOTE | ~2022-03-15 | CT_ITS ---
EXAMINATION: CT brain wo con DATE: 03/15/2022 13:33 INDICATION: Headache, lethargy. 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 TECHNIQUE: Computed tomography (CT) of the head was performed without intravenous contrast. The mA wa s adjusted according to patient size. Iterative reconstruction technique was employed. Exam dose: 60 5.33 mGy-cm total exam DLP. COMPARISON: 02/11/2021 CT brain 01/07/2021 CT brain FINDINGS: Again noted is a right posterior parietal ventriculoperitoneal shunt catheter terminating a t lateral ventricle, stable moderate dilatation of third and lateral ventricles. Bilateral carotid siphon internal carotid artery calcifications. There is nonspecific diminished atte nuation of the cerebral white matter, likely due to chronic small vessel ischemic changes. No intracranial mass lesion or hemorrhage, midline shift or mass effect effect. No subdural or epidur al hematoma. No fracture or bone destruction of the cranial vault. There is patchy opacification of some ethmoid air cells bilaterally. The included paranasal sinuses a re otherwise unremarkable. Mastoid air cells are normally developed and aerated. IMPRESSION: Right AUDIO VISUAL ENGINEER shunt and stable moderate dilatation of the third and lateral ventricles Reviewed, dictated and finalized at Location [facility]. Reviewed, dictated and finalized at location A. 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
--- NOTE | ~2022-03-15 | XR_ITS ---
XR elbow LT min 3V DATE: 03/15/2022 13:40 INDICATION: Posterior elbow swelling for 2 weeks TECHNIQUE: 3 views COMPARISON: None FINDINGS: Prominent soft tissue swelling of the dorsum of the elbow consistent with olecranon bursiti s. There is degenerative spurring of the coronoid process of the proximal ulna. No fracture or dislocati on or joint effusion. No periosteal reaction or bone destruction. IMPRESSION: Prominent posterior soft tissue swelling consistent with olecranon bursitis Coronoid process spurring Reviewed, dictated and finalized at location A.
--- NOTE | 2022-03-15 12:36 | ED.UPPEXIN ---
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 Nausea without any vomiting. No focal neuro deficits. No visual complaints -- left elbow pain / swelling after he hit his elbow complaint: injury to: left and elbow Onset (ago): week(s) ( left elbow pain swelling present for the past 1 week) Other Extremity Injury: Left: elbow Other injuries: none Handedness: right Place: work Severity: moderate Relieving factors: none Exacerbating factors: none Context: direct blow Related Data Home Medications Medication Instructions Recorded Confirmed No Home Medications 02/20/22 03/15/22 Allergies Allergy/AdvReac Type Severity Reaction Status Date / Time No Known Allergies Allergy Verified 03/15/22 12:49 Review of Systems Review of Systems: All systems reviewed & are unremarkable except as noted in HPI and below Constitutional: Constitutional: Reports as per HPI and Reports no additional constitutional complaints Eyes: Eyes: Reports as per HPI and Reports no additional eye complaints ENT: Reports system reviewed and no additional complaints, except as documented and Reports as per HPI Cardiovascular: Cardiovascular: Reports as per HPI and Reports no additional cardiovascular complaints Respiratory: Respiratory: Reports as per HPI and Reports no additional respiratory complaints Gastrointestinal: Gastrointestinal: Reports as per HPI, Reports no additional gastrointestinal complaints and Reports nausea Genitourinary: Genitourinary: Reports no additional male genitourinary complaints and Reports as per HPI Musculoskeletal: Musculoskeletal: Reports no additional musculoskeletal complaints and Reports as per HPI Comments: joint pains. Integumentary/Breasts: Skin/Breast: Reports system reviewed and no additional complaints, except as docu and Reports as per HPI Neurologic: Reports system reviewed and no additional complaints, except as documented, Reports as per HPI and Reports headache(s) Comments: Complains of intermittent headache without any deficits. Psychiatric: Psychiatric: Reports no additional psychiatric complaints and Reports as per HPI Endocrine: Endocrine: Reports no additional endocrine complaints and Reports as per HPI Hematologic/Lymphatic: Hematologic/Lymphatic: Reports no additional hematologic/lymphatic complaints and Reports as per HPI Allergic/Immunologic: Allergic/Immunologic: Reports no additional allergic/immunologic complaints and Reports as per HPI PMFSH Past Medical History Medical History Anxiety and depression Diabetes mellitus Hydrocephalus Surgical History Surgical History H/O brain surgery H/O brain surgery H/O knee surgery S/P FRONT DESK REPRESENTATIVE shunt Family History Family History Other Family history non-contributory Social History Social History Smoking packs per day: 1.0 Smoking cigarettes per day: 20.0 Smoking status: Current every day smoker Tobacco type: cigarettes Alcohol intake: current Drinks per week: 12 Substance use: never Substance use type: marijuana Gender identity (if verbalized by the patient): Male Exam Const: General: healthy appearing and no acute distress Orientation/consciousness: patient oriented x3 Limitations: no limitations HENMT: Head: normal to inspection ( Healed scar the back of his head) Ears: external ears normal General nose exam: Normal external nose present Face and sinus: normal facial exam
[2022-03-15 12:38] VITALS: BP 124/74; PULSE 72; RESP 18; TEMP 36.7; O2SAT 98
[2022-03-15 13:20] LABS: Basophils Absolute Auto 0.08 K/mm3 (0.00-0.10); Eosinophils Absolute Auto 0.33 K/mm3 (0.02-0.50); Hematocrit 45.7 % (40.0-54.0); Hemoglobin 17.1 g/dL (14.0-18.0); Immature Granulocyte Absolute 0.03 K/mm3 (0.00-0.00); Immature Granulocyte Percent A 0.4 % (0.0-0.0); Lymphocytes Absolute Auto 2.52 K/mm3 (1.10-4.50); Lymphocytes Percent Auto 30.4 % (18.0-42.0); Mean Corpuscular HGB Conc 37.4 g/dL (32.0-36.0); Mean Corpuscular Volume 82.9 fL (78.0-102.0); Mean Platelet Volume 10.3 fl (8.7-11.0); Monocytes Absolute Auto 0.53 K/mm3 (0.10-0.90); Monocytes Percent Auto 6.4 % (2.0-11.0); Neutrophils Absolute Auto 4.8 K/mm3 (1.7-7.2); Neutrophils Percent Auto 57.8 % (50.0-70.0); Platelet Count Result 208 K/mm3 (150-420); Red Blood Count 5.51 M/mm3 (4.70-6.10); Red Cell Distribution Width 11.4 % (11.6-14.4); White Blood Count 8.3 K/mm3 (4.8-10.8)
[2022-03-15 13:36] LABS: Uric Acid 3.7 mg/dL (3.5-7.2)
[2022-03-15 13:37] LABS: Alanine Aminotransferase 19 U/L (16-63); Albumin Level 3.5 g/dL (3.4-5.0); Alkaline Phosphatase 182 U/L (46-116); Anion Gap 6 mmol/L (8-16); Aspartate Amino Transferase < 10 U/L (15-37); Bilirubin,Total 1.2 mg/dL (0.00-1.00); Blood Urea Nitrogen 12 mg/dL (7-18); Calcium 8.8 mg/dL (8.5-10.1); Carbon Dioxide 27 mmol/L (21-32); Chloride 99 mmol/L (98-108); Estimated CRCL calculation 87 ml/min; Estimated Glomerular Filt Rate > 60; Glucose 326 mg/dL (70-99); Osmolality Calculated 286 mOsm/kg (285-295); Potassium 3.8 mmol/L (3.5-5.1); Sodium 132 mmol/L (136-145)
== END 2022-03-15 14:48 | disposition home or self-care (01) ==
PROVIDERS: Emergency Provider Internal Medicine Critical Care Medicine
DX: R51.9 Headache, unspecified (principal); M70.22 Olecranon bursitis, left elbow; E11.65 Type 2 diabetes mellitus with hyperglycemia
CPT/HCPCS: 36415; 70450; 73080; 80053; 84550; 85025; 99284

== ENCOUNTER 2023-05-28 11:41 | Emergency (ER) | payer OTHER, MEDICAID, SELFPAY ==
[2023-05-28] VITALS (27 sets, daily range): BP systolic 117–151; BP diastolic 78–93; PULSE 63–92; RESP 14–22; TEMP 35.9–36.6; O2SAT 95–100
--- NOTE | ~2023-05-28 | CT_ITS ---
EXAMINATION: CT brain wo con DATE: 05/28/2023 12:38 INDICATION: Headache with nausea and vomiting TECHNIQUE: Computed tomography (CT) of the head was performed without intravenous contrast. Sagittal and coronal reconstructions were performed. The mA was adjusted according to patient size. Iterative reconstruction technique was employed. The dose-length product was 681.00 mGy-cm. COMPARISON: head CT dated 03/15/2022 FINDINGS: No interval change in a right posterior parietal ventriculoperitoneal shunt catheter with distal tip at the body of the right lateral ventricle. Unchanged moderate dilation of the left and right lateral and third ventricles. Fourth ventricle remains normal in size. Basal cisterns are patent. No acute i ntracranial hemorrhage, acute infarction or abnormal extra axial fluid collection. No mass/mass effec t. Additional catheter terminating in the subcutaneous tissues of the right upper neck posterior to t he mastoid process. The orbits, paranasal sinuses and mastoid air cells are normal. Intracranial calc ified cerebral atherosclerosis is noted. IMPRESSION: 1. Stable moderate dilation of the third and left and right lateral ventricles with unchanged ventric ular peritoneal shunt terminating in the right lateral ventricle. Reviewed, dictated and finalized at location A. IMPRESSION: 1. Stable moderate dilation of the third and left and right lateral ventricles with unchanged ventricular peritoneal shunt terminating in the right lateral ve ntricle.
[2023-05-28 12:02] LABS: Glucose Point of Care 147 mg/dl (65-105)
[2023-05-28 12:11] LABS: White Blood Count 8.9 K/mm3 (4.8-10.8)
[2023-05-28 12:12] LABS: Basophils Absolute Auto 0.07 K/mm3 (0.00-0.10); Basophils Percent Auto 0.8 % (0.0-1.0); Eosinophils Absolute Auto 0.12 K/mm3 (0.02-0.50); Eosinophils Percent Auto 1.3 % (1.0-6.0); Hematocrit 50.8 % (40.0-54.0); Hemoglobin 18.2 g/dL (14.0-18.0); Immature Granulocyte Absolute 0.02 K/mm3 (0.00-0.00); Immature Granulocyte Percent A 0.2 % (0.0-0.0); Lymphocytes Absolute Auto 1.53 K/mm3 (1.10-4.50); Lymphocytes Percent Auto 17.2 % (18.0-42.0); Mean Corpuscular HGB Conc 35.8 g/dL (32.0-36.0); Mean Corpuscular Hemoglobin 29.9 pg (27.0-31.0); Mean Corpuscular Volume 83.4 fL (78.0-102.0); Mean Platelet Volume 9.7 fl (8.7-11.0); Monocytes Absolute Auto 0.44 K/mm3 (0.10-0.90); Monocytes Percent Auto 4.9 % (2.0-11.0); Neutrophils Absolute Auto 6.7 K/mm3 (1.7-7.2); Neutrophils Percent Auto 75.6 % (50.0-70.0); Platelet Count Result 251 K/mm3 (150-420); Red Blood Count 6.09 M/mm3 (4.70-6.10); Red Cell Distribution Width 11.9 % (11.6-14.4)
[2023-05-28] MEDS: ONDANSETRON INJ 4 MG/2 ML VIAL IV PUSH ×2 (12:18→14:28)
[2023-05-28] MEDS: KETOROLAC 30 MG/ML VIAL (*BKC) IV PUSH (12:18)
[2023-05-28 12:33] LABS: Alanine Aminotransferase 23 U/L (16-63); Albumin Level 4.3 g/dL (3.4-5.0); Alkaline Phosphatase 142 U/L (46-116); Anion Gap 16 mmol/L (8-16); Aspartate Amino Transferase 15 U/L (15-37); Bilirubin,Total 1.4 mg/dL (0.00-1.00); Blood Urea Nitrogen 14 mg/dL (7-18); Calcium 9.8 mg/dL (8.5-10.1); Carbon Dioxide 22 mmol/L (21-32); Chloride 104 mmol/L (98-108); Estimated CRCL calculation 94 ml/min; Estimated Glomerular Filt Rate > 60; Glucose 160 mg/dL (70-99); Osmolality Calculated 297 mOsm/kg (285-295); Potassium 3.6 mmol/L (3.5-5.1); Sodium 142 mmol/L (136-145); Total Protein 8.5 g/dL (6.4-8.2)
--- NOTE | 2023-05-28 12:36 | ED.NAVMDI ---
HPI - Nausea/Vomiting/Diarrhea General Chief complaint: Nausea/Vomiting/Diarrhea Stated complaint: nausea vomiting Source: patient and family Mode of arrival: wheelchair Limitations: physical limitation History of Present Illness HPI Narrative: this is 52-year-old male that presents with headache for the past couple of days with nausea vomiting no abdominal pain no diarrhea constipation no fever chills. The patient has no chest pain no shortness of breath, patient has a history of diabetes current glucose is 146. Patient has a history of hydrocephalus and has a shunt, and patient states that he developed some nausea vomiting and headache when his shunt is blocked. Otherwise, no neurological deficits calmer no blurry vision no chest pain no shortness of breath no dysuria. MD elicited complaint: nausea, vomiting and other ( headache) Onset (ago): day(s) Related Data Home Medications Medication Instructions Recorded Confirmed canagliflozin 100 mg tablet 100 mg PO DAILY 05/28/23 05/28/23 (Invokana) dulaglutide 0.75 mg/0.5 mL 0.75 mg subcut WEEKLY 05/28/23 05/28/23 subcutaneous pen injector (Trulicity) Allergies Allergy/AdvReac Type Severity Reaction Status Date / Time No Known Allergies Allergy Verified 05/28/23 11:52 Review of Systems Review of Systems: All systems reviewed & are unremarkable except as noted in HPI and below PMFSH Past Medical History Medical History Anxiety and depression Diabetes mellitus Hydrocephalus Surgical History Surgical History H/O brain surgery H/O brain surgery H/O knee surgery 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 Family History Family History Other Family history non-contributory Social History Social History Smoking packs per day: 1.0 Smoking cigarettes per day: 20.0 Smoking status: Current every day smoker Tobacco type: cigarettes Alcohol intake: current Drinks per week: 12 Substance use: never Substance use type: marijuana Gender identity (if verbalized by the patient): Male Exam Const: General: no acute distress Limitations: no limitations HENMT: Head: normal to inspection Eyes: Conjunctivae: conjunctivae normal Neck: Neck: normal visual inspection, no lymphadenopathy and no meningeal signs Chest: Chest palpation & inspection: normal inspection of the chest Resp: Effort & Inspection: normal respiratory effort Auscultation: clear to auscultation bilaterally Cardio: Rate: regular rate Rhythm: regular rhythm GI: GI Palp: Yes Soft to palpation Auscultation: normal bowel sounds : General: Yes bladder normal to palpation Urinary Catheter: Urinary Catheter: patent and draining Back/Spine/Pelvis: Back: no CVA tenderness Skin: General skin exam: normal color Rashes: no rashes Wounds: no wounds Neuro: General: patient oriented x3, moves all extremities, no meningeal signs and no focal motor deficits Cranial nerves: Yes Nystagmus not present Speech: normal speech Extrem: General: normal to inspection and no clubbing, cyanosis or edema Psych: Mental Status: mental status grossly normal Affect: normal affect Course Course Emergency Course: Patient belligerent to staff and using curse words, patient was reluctant to have any test performed, and wanted us directly call his neurosurgeon which is located at [facility]. Advised patient that it is appropriate to perform CT scan and if there is any evidence of shunt obstruction that we would call his neurosurgeon. Patient was upset with some that suggestion. Patient eventually perform CT scan which is evaluated reviewed, patient received Zofran and Toradol for his headache and nausea vomiting. Blood sugars were 146. Vital Signs Vital signs: Vital Signs Temperature 35.9
[2023-05-28 12:43] LABS: Lactic Acid Reflex 1.8 mmol/L (0.4-2.0)
== END 2023-05-28 15:18 | disposition short-term general hospital (02) ==
PROVIDERS: Emergency Provider Emergency Medicine; PCP Internal Medicine
DX: G91.9 Hydrocephalus, unspecified (principal); E11.9 Type 2 diabetes mellitus without complications; F17.210 Nicotine dependence, cigarettes, uncomplicated; Z79.899 Other long term (current) drug therapy
CPT/HCPCS: 36415; 70450; 80053; 82948; 83605; 85025; 96374; 96375; 96376; 99285; J1885; J2405